=== PATIENT | male | born 1975 | race Caucasian/White ===

== ENCOUNTER 2016-08-12 09:54 | Day surgery (SDC) | payer BC ==
[2016-08-10 16:00] VITALS: BMI 28.1
[~2016-08-12 09:54] MED LIST: ACETAMINOPHEN TAB 500 MG TAB PO ONE; DEXAMETHASONE SOD PHOSPHATE 4 MG/ML 1 ML VIAL IV ONE; FAMOTIDINE 20 MG/2 ML VIAL IV ONE; LIDOCAINE 1% 20 ML VIAL (10MG/ML) FOR IV START INTRADERMA PRN; MIDAZOLAM 2 MG/2 ML VIAL IV PRN; ONDANSETRON 4 MG/2 ML VIAL IVP ONE; Pre Op ABX Message 1 EACH MISC MISCELLANE ONE; SCOPOLAMINE 1.5MG/72HR PATCH TRANSDERM ONE
[2016-08-12] MEDS: OXYMETAZOLINE 0.05% NASL SPRAY 15 ML NASAL SCH ×4 (11:04→11:32)
[2016-08-12] MEDS: LACTATED RINGERS 1,000 ML IV SCH ×3 (11:21→18:00)
[2016-08-12] MEDS ORDERED: ePHEDrine 50 MG/ML 1 ML AMP ONE (12:04)
[2016-08-12] MEDS ORDERED: DEXAMETHASONE SOD PHOS (MDV) 100 MG/10 ML VIAL ONE (12:04)
[2016-08-12] MEDS ORDERED: ONDANSETRON 4 MG/2 ML VIAL ONE (12:04)
[2016-08-12] MEDS ORDERED: SUCCINYLCHOLINE CHLORIDE 100 MG/5 ML SYR IV ONE (12:04)
[2016-08-12] MEDS ORDERED: MIDAZOLAM 2 MG/2 ML VIAL ONE (12:04)
[2016-08-12] MEDS ORDERED: PROPOFOL 10 MG/ML 20 ML VIAL IV ONE (12:04)
[2016-08-12] MEDS ORDERED: LIDOCAINE 1% INJ 10MG/ML (20 ML MDV) ONE (12:04)
[2016-08-12] MEDS ORDERED: fentaNYL (PF) 50 MCG/ML 2 ML AMP ONE (12:04)
[2016-08-12] MEDS ORDERED: LIDOCAINE 1%-EPI 1:100,000 20 ML VIAL SQ ONE (13:00)
[2016-08-12] MEDS ORDERED: LACTATED RINGERS 1,000 ML IV ONE (14:50)
[2016-08-12 15:20] VITALS: TEMP 98.3
[2016-08-12] MEDS: HYDROmorphone 1 MG/ML 1 ML SYRINGE IVP PRN ×2 (15:30→15:38)
--- NOTE | 2016-08-12 15:42 | P.OP ---
Date of Procedure: 08/12/16 Preoperative Diagnosis: Status post a partial right nasectomy for cancer, absence of right side of nose Postoperative Diagnosis: Same Procedure(s) Performed: Nasal reconstruction with use of a paramedian forehead flap with upper lateral cartilaginous graft with complex closure of the donor site. Anesthesia: GETA Surgeon: Kodak Barr Estimated Blood Loss (ml): 50 Pathology: other (Nasal margin) Condition: stable Disposition: PACU Indications for Procedure: This patient had a infiltrative basal cell carcinoma. Initial removal showed perineural invasion. Was sent to a Mohs surgeon for completion of removal. Reconstruction is planned. All risks, benefits, and alternative therapies were discussed in detail. Consent was obtained and all questions were answered. Operative Findings: Patient had a very large right nasal defect including the right side of the nose columella and alar rim. Description of Procedure: This patient was taken to the operative room and placed in the supine position. A general inhalation anesthetic was administered to the patient by mask and subsequently intubated with a cuffed endotracheal tube by the department of anesthesia with a functioning IV line in place. Patient was monitored throughout the entire case by the department of anesthesia. The face and nose was sterilely prepped and draped in usual fashion. We identified a very large right nasal defect where the entire right side of the nose was missing. We've injected the nose with lidocaine 1% with epinephrine 1 100,000 did markings. We with the use of a dermoid blade freshen the margins to accept the graft. We then did measurements and developed a template for nasal reconstruction. The nasal reconstruction was planned with a paramedian forehead flap. We utilized a Doppler to identify the supratrochlear artery. We marked this area. We harvested cartilage from the septum and use that as an upper lateral cartilage insert. We elected to hold off on a rim caudal edge of this graft until after this is healed. We then measured the forehead and scalp flap and used to template which extended into the scalp. We developed the paramedian flap with use of a 15 blade delicate plastic scissors and a Brown-Adsjames forceps and we rotated the paramedian flap into position and measured this appropriately. We had good blood flow and utilized a Doppler to make sure the pedicle flap was viable. We did extensive undermining of the donor site and we close the donor site in a complex fashion utilizing 2-0 Vicryl deeply 4-0 Monocryl in the deep dermal layer and the skin was closed with use of a 5-0 nylon. After closure of this donor site in a complex fashion we rotated the pedicle flap into position we thinned out the lower portion and rotated the lower portion upon itself to form the LR rim. We sutured the flap into position utilizing 4-0 Monocryl deeply. We then closed the skin with a 4-0 nylon in an interrupted type fashion. Excellent approximation was obtained we obtained an excellent cosmetic result with regard LR rim reconstruction. We utilized the cartilage that we previously harvested for the upper lateral cartilage for form and function. The patient tolerated this well and follow-up will be in the office in 1 week.
[2016-08-12] MEDS ORDERED: HYDROmorphone 1 MG/ML 1 ML SYRINGE IVP ONE (15:56)
[2016-08-12] MEDS ORDERED: HYDROcodone/APAP 5-325MG 1 EACH TAB PO ONE ×2 (16:34→16:36)
[2016-08-12 19:13] VITALS: BP 121/74; PULSE 99; RESP 18
== END 2016-08-12 18:18 | disposition home or self-care (01) ==
LOC: OR 09:54
PROVIDERS: ATTEND Otolaryngology
DX: Z42.8 Encounter for other plastic and reconstructive surgery following medical procedure or healed injury (principal); Z90.09 Acquired absence of other part of head and neck; C44.311 Basal cell carcinoma of skin of nose; I10 Essential (primary) hypertension; Z79.891 Long term (current) use of opiate analgesic; Z79.899 Other long term (current) drug therapy
CPT/HCPCS: 30400; 20912; 15731; 88305; C1762; J2250; J2405; J2001; J3010; J1170; J1100; J0330; J2704

== ENCOUNTER 2016-11-18 10:17 | Day surgery (SDC) | payer BC ==
[2016-11-17 14:18] VITALS: BMI 30.7
[~2016-11-18 10:17] MED LIST changes: +DEXAMETHASONE SOD PHOSPHATE 10 MG/ML 1 ML VIAL IV ONE; +LACTATED RINGERS 1,000 ML IV SCH; -LIDOCAINE 1% 20 ML VIAL (10MG/ML) FOR IV START INTRADERMA PRN; -MIDAZOLAM 2 MG/2 ML VIAL IV PRN; -Pre Op ABX Message 1 EACH MISC MISCELLANE ONE; +ceFAZolin 2 GM in SODIUM CHLORIDE 0.9% 100 ML IVPB ONE
[2016-11-18] MEDS ORDERED: LIDOCAINE 1% 20 ML VIAL (10MG/ML) FOR IV START INTRADERMA ONE (10:52)
[2016-11-18] MEDS ORDERED: ePHEDrine 50 MG/ML 1 ML AMP ONE (11:57)
[2016-11-18] MEDS ORDERED: LIDOCAINE 1% INJ 10MG/ML (20 ML MDV) ONE (11:57)
[2016-11-18] MEDS ORDERED: MIDAZOLAM 2 MG/2 ML VIAL ONE (11:57)
[2016-11-18] MEDS ORDERED: PROPOFOL 10 MG/ML 20 ML VIAL IV ONE (11:57)
[2016-11-18] MEDS ORDERED: fentaNYL (PF) 50 MCG/ML 2 ML AMP ONE (11:57)
[2016-11-18] MEDS ORDERED: SUCCINYLCHOLINE CHLORIDE 100 MG/5 ML SYR IV ONE (11:57)
[2016-11-18] MEDS ORDERED: LIDOCAINE 1%-EPI 1:100,000 20 ML VIAL SQ ONE ×2 (12:30)
[2016-11-18] MEDS ORDERED: BUPIVACAIN-EPI 0.5%-1:200,000 30 ML VIAL SQ ONE ×2 (12:30)
[2016-11-18] MEDS ORDERED: NITROGLYCERIN OINT 1 INCH/GM PACKET TOPICAL ONE (13:37)
[2016-11-18] MEDS ORDERED: BACITRACIN 500 UNIT/GM OINT 28.4 GM TUBE TOPICAL ONE (13:42)
[2016-11-18] MEDS ORDERED: LACTATED RINGERS 1,000 ML IV ONE (13:59)
[2016-11-18 14:15] VITALS: TEMP 97
[2016-11-18] MEDS: HYDROmorphone 1 MG/ML 1 ML SYRINGE IVP PRN ×2 (14:17→14:24)
--- NOTE | 2016-11-18 14:20 | P.OP ---
Date of Procedure: 11/18/16 Preoperative Diagnosis: Forehead and nose pedicle flap for nasal reconstruction after cancer removal. Postoperative Diagnosis: Same Procedure(s) Performed: Excision of a forehead topedicle flap with a complex closure of a 2.6 x 2 cm forehead defect to complex closure of a nasal defect measuring 2.7 x 1 cm with a debulking of the right alar rim with a right auricular cartilage graft and a complex closure of a right auricular donor site measuring 2.6 x 1 cm Implants: Anesthesia: CLAYA Surgeon: Kodak Barr Estimated Blood Loss (ml): 10 Pathology: none sent Condition: stable Disposition: PACU Indications for Procedure: Patient is a very large right nasal cancer and underwent reconstruction with use of a forehead flap. He seen today for pedicle takedown. We are also planning on a right auricular cartilage graft to reconstruct the right alar rim along with a debulking. Operative Findings: Patient had a existing pedicle flap that was taken down and the right nasal alar rim incision underwent reconstruction. Description of Procedure: This patient was taken to the operative room and placed in the supine position. A general inhalation anesthetic was administered to the patient by mask and subsequently intubated with a cuffed endotracheal tube by the department of anesthesia with a functioning IV line in place. The patient was monitored throughout the entire case by the department of anesthesia. The face and right ear and neck were sterilely prepped and draped in usual fashion. We marked the pedicle flap both on the forehead and around the nose along with a rim incision to the right christopher bowl. We anesthetize these areas with lidocaine 1% with epinephrine 1 100,000 and Marcaine. After 10 minutes were allowed wait for full vasoconstrictive effects to take place an incision was made in the forehead and the pedicle flap was from the forehead leaving a large defect. We excised this defect and close this after extensive undermining in all directions we did undermining in all directions widely removed redundant skin and close this in a complex fashion the incision measured 2.6 x 2 cm. We closed this with the 4-0 Monocryl in the deep subcutaneous tissue 4-0 Monocryl in the deep dermal layer 4-0 Monocryl and the mid dermal layer and the skin was closed with a 5-0 Prolene. The pedicle flap was then excised from the nose leaving a large defect measuring 2.7 x 1 cm. This defect underwent a debulking with removal of redundant skin we did extensive undermining in all directions and we repaired this defect with complex closure utilizing a 4-0 Monocryl in the deep subcutaneous fashion for Monocryl and the mid subcutaneous fashion and the skin was closed with a 5-0 Prolene. After the nasal defect was excised we made an incision along the right alar rim and debulked the right alar rim. We then made an incision in the auricular christopher bowl and harvested the skin from the christopher bowl. We closed the donor site in a complex fashion with extensive undermining and we utilized a 4-0 Monocryl the deep subcutaneous tissue 4-0 Monocryl in the deep dermal layer and the skin was closed with a 50 rapid Vicryl in a running nonlocking fashion that incision and defect site measured 2.6 x 1 cm. After the donor site was closed in a complex fashion the cartilage was cut to size and placed as a alar rim graft. We sutured it into place. Again we did a debulking of the right alar rim which was quite bulky. We then that rim and we close that defect in a complex fashion again with a 4-0 Monocryl deeply and a 5-0 Prolene after we did undermining and a graft placement and we secured the graft with a 4-0 Monocryl. Excellent approximation was obtained excellent results were obtained the nasal defects looked good. To summarize we did an excision of a forehead and nose pedicle flap with complex closure with a defect measuring 2.6 x 2 cm of the forehead we then did a complex closure of a nasal defect measuring 2.1 x 1 cm with a debulking of the right alar rim is a right auricular cartilage graft and complex closure of the right auricular donor site measuring 2.6 x 1 cm. The patient tolerated this well. Patient will be discharged with nitroglycerin ointment [place] antibiotics and a follow-up is scheduled for 1 week. The patient did have a Merocel sponge pack placed and he will remove that in 1 day.
[2016-11-18 14:35] VITALS: RESP 16
[2016-11-18] MEDS ORDERED: HYDROcodone/APAP 5-325MG 1 EACH TAB PO ONE (15:14)
[2016-11-18 15:37] VITALS: BP 129/71; PULSE 92
== END 2016-11-18 15:51 | disposition home or self-care (01) ==
LOC: OR 10:17
PROVIDERS: ATTEND Otolaryngology
DX: Z42.8 Encounter for other plastic and reconstructive surgery following medical procedure or healed injury (principal); C44.311 Basal cell carcinoma of skin of nose; I10 Essential (primary) hypertension; Z79.891 Long term (current) use of opiate analgesic; Z79.899 Other long term (current) drug therapy; Z72.0 Tobacco use
CPT/HCPCS: 30400; 21235; 13132; J2250; J1100; J0690; J2405; J2001; J3010; J1170; J0330; J2704

== ENCOUNTER 2017-12-20 11:26 | Inpatient (IN) | payer BC, OTHER ==
[2017-12-20] MEDS ORDERED: HYDROmorphone 1 MG/ML 1 ML SYRINGE IVP STA (13:25)
[2017-12-20] MEDS ORDERED: SODIUM CHLORIDE 0.9% 1,000 ML IV ONE (13:27)
[2017-12-20] MEDS ORDERED: ACETAMINOPHEN TAB 500 MG TAB PO STA (13:34)
[2017-12-20] MEDS ORDERED: hydrALAZINE HCL 20 MG/ML 1 ML VIAL IVP STA (13:34)
[2017-12-20] MEDS ORDERED: HYDROmorphone 0.5 MG/0.5 ML SYRINGE IVP STA (13:36)
--- NOTE | 2017-12-20 13:37 | ED ---
General Adult HPI - General Chief complaint: Abdominal Pain Stated complaint: LUQ Pain Time Seen by Provider: 12/20/17 11:30 Source: patient, RN notes reviewed Mode of arrival: ambulatory Limitations: no limitations - History of Present Illness Initial comments: This is a 42-year-old male who presents emergency Department complaining of left lower quadrant pain for last 2 or 3 days. Patient states he has vomited and was nauseous earlier but is no longer nauseated. Patient denies any diarrhea. Patient states the pain is limited to the left lower quadrant. Patient denies any other areas of abdominal pain. Patient denies any chest pain or difficulty breathing. Patient denies any headache patient denies numbness weakness. Patient denies any recent fever chills. Patient denies any back pain. Patient denies dysuria hematuria urinary frequency. - Related Data Home Medications Medication Instructions Recorded Confirmed No Known Home Medications 12/20/17 12/20/17 Allergies Allergy/AdvReac Type Severity Reaction Status Date / Time No Known Allergies Allergy Verified 12/20/17 12:50 Review of Systems ROS Statement: Those systems with pertinent positive or pertinent negative responses have been documented in the HPI. ROS Other: All systems not noted in ROS Statement are negative. Past Medical History Past Medical History: Cancer, GERD/Reflux, Hypertension Additional Past Medical History / Comment(s): skin cancer on nose , diverticulitis, History of Any Multi-Drug Resistant Organisms: None Reported Past Surgical History: Cholecystectomy, Orthopedic Surgery Additional Past Surgical History / Comment(s): LEFT WRIST surgery, "surgery to remove cyst from my stomach", nasal surgery Past Anesthesia/Blood Transfusion Reactions: No Reported Reaction Past Psychological History: Anxiety Smoking Status: Current every day smoker Past Alcohol Use History: None Reported Past Drug Use History: None Reported - Past Family History Mother Family Medical History: No Reported History General Exam - General Exam Comments Initial Comments: GENERAL: Patient is well-developed and well-nourished. Patient is nontoxic and well- hydrated and is in mild distress. ENT: Neck is soft and supple. No significant lymphadenopathy is noted. Oropharynx is clear. Moist mucous membranes. Neck has full range of motion without eliciting any pain. EYES: The sclera were anicteric and conjunctiva were pink and moist. Extraocular movements were intact and pupils were equal round and reactive to light. Eyelids were unremarkable. PULMONARY: Unlabored respirations. Good breath sounds bilaterally. No audible rales rhonchi or wheezing was noted. CARDIOVASCULAR: There is a regular rate and rhythm without any murmurs gallops or rubs. ABDOMEN: Left lower quadrant pain point tenderness no rebound. No palpable organomegaly was noted. There is no palpable pulsatile mass. SKIN: Skin is clear with no lesions or rashes and otherwise unremarkable. NEUROLOGIC: Patient is alert and oriented x3. Cranial nerves II through XII are grossly intact. Motor and sensory are also intact. Normal speech, volume and content. Symmetrical smile. MUSCULOSKELETAL: Normal extremities with adequate strength and full range of motion. No lower extremity swelling or edema. No calf tenderness. LYMPHATICS: No significant lymphadenopathy is noted PSYCHIATRIC: Normal psychiatric evaluation. Normal interpersonal interactions appears functionally intact in deals appropriately with others. No signs of depression. No signs of anxiety. Limitations: no limitations Course Vital Signs 12/20/17 12:15 Temperature 100.3 F H Pulse Rate 127 H Respiratory 16 Rate Blood Pressure 200/118 O2 Sat by Pulse 97 Oximetry Medical Decision Making - Medical Decision Making Computed tomography scan shows acute diverticulitis with some surrounding free fluid no free air no abscess. I spoke with Dr. Pierre he accepted the patient admitted the patient wrote admitting orders I started antibiotics and continue antibiotics on the floor. - Lab Data Result diagrams: 12/20/17 13:50 12/20/17 13:50 Lab Results 12/20/17 12/20/17 12/20/17 Range/Units 13:50 13:50 13:50 WBC 14.8 H (3.8-10.6) k/uL RBC 4.51 (4.30-5.90) m/uL Hgb 14.9 (13.0-17.5) gm/dL Hct 43.2 (39.0-53.0) % MCV 95.6 (80.0-100.0) fL MCH 33.0 (25.0-35.0) pg MCHC 34.5 (31.0-37.0) g/dL RDW 12.5 (11.5-15.5) % Plt Count 242 (150-450) k/uL Neutrophils % 81 % Lymphocytes % 11 % Monocytes % 6 % Eosinophils % 0 % Basophils % 1 % Neutrophils # 11.9 H (1.3-7.7) k/uL Lymphocytes # 1.6 (1.0-4.8) k/uL Monocytes # 0.9 (0-1.0) k/uL Eosinophils # 0.1 (0-0.7) k/uL Basophils # 0.1 (0-0.2) k/uL Sodium 141 (137-145) mmol/L Potassium 3.5 (3.5-5.1) mmol/L Chloride 102 (98-107) mmol/L Carbon Dioxide 24 (22-30) mmol/L Anion Gap 15 mmol/L BUN 7 L (9-20) mg/dL Creatinine 0.80 (0.66-1.25) mg/dL Est GFR (CKD-EPI)AfAm >90 (>60 ml/min/1.73 sqM) Est GFR (CKD-EPI)NonAf >90 (>60 ml/min/1.73 sqM) Glucose 109 H (74-99) mg/dL Plasma Lactic Acid Duong 1.4 (0.7-2.0) mmol/L Calcium 9.5 (8.4-10.2) mg/dL Total Bilirubin 1.1 (0.2-1.3) mg/dL GGT 314 H (15-73) U/L AST 60 H (17-59) U/L ALT 65 (21-72) U/L Alkaline Phosphatase 114 (38-126) U/L Total Protein 7.4 (6.3-8.2) g/dL Albumin 4.4 (3.5-5.0) g/dL Amylase 60 (30-110) U/L Lipase 91 (23-300) U/L Disposition Clinical Impression: Diverticulitis Disposition: ADMITTED IP TO THIS [facility] Referrals: None,Stated [Primary Care Provider] - 1-2 days Time of Disposition: 15:29
[2017-12-20 14:23] LABS: Basophils # (A) 0.1 k/uL (0-0.2); Basophils % (A) 1 %; Eosinophils # (A) 0.1 k/uL (0-0.7); Eosinophils % (A) 0 %; HCT 43.2 % (39.0-53.0); HGB 14.9 gm/dL (13.0-17.5); Lymphocytes # (A) 1.6 k/uL (1.0-4.8); Lymphocytes % (A) 11 %; MCHC 34.5 g/dL (31.0-37.0); MCV 95.6 fL (80.0-100.0); Mean Platelet Volume 6.7; Monocytes # (A) 0.9 k/uL (0-1.0); Monocytes % (A) 6 %; Neutrophils # (A) 11.9 k/uL (1.3-7.7); Neutrophils % (A) 81 %; Platelet Count 242 k/uL (150-450); RBC 4.51 m/uL (4.30-5.90); RDW 12.5 % (11.5-15.5); WBC 14.8 k/uL (3.8-10.6)
[2017-12-20 14:32] LABS: ALT 65 U/L (21-72); AST 60 U/L (17-59); Albumin 4.4 g/dL (3.5-5.0); Alkaline Phosphatase 114 U/L (38-126); Amylase 60 U/L (30-110); Anion Gap 15 mmol/L; Blood Urea Nitrogen 7 mg/dL (9-20); Calcium 9.5 mg/dL (8.4-10.2); Carbon Dioxide 24 mmol/L (22-30); Chloride 102 mmol/L (98-107); GGT 314 U/L (15-73); Glucose 109 mg/dL (74-99); Lipase 91 U/L (23-300); Potassium 3.5 mmol/L (3.5-5.1); Sodium 141 mmol/L (137-145); Total Bilirubin 1.1 mg/dL (0.2-1.3); Total Protein 7.4 g/dL (6.3-8.2)
--- NOTE | 2017-12-20 15:11 | CT ---
EXAMINATION TYPE: CT abdomen pelvis w con DATE OF EXAM: 12/20/2017 COMPARISON: NONE HISTORY: LLQ pain, diarrhea, vomiting CT DLP: 1283 mGycm Automated exposure control for dose reduction was used. CONTRAST: CT scan of the abdomen pelvis is performed with IV Contrast, patient injected with 100 mL of Isovue 3 00. FINDINGS- LUNG BASES- No significant abnormality is appreciated. LIVER/GB-surgical clips in the gallbladder fossa noted. Liver appears to be prominent in size measuri ng 22 cm there is findings suggestive of hepatic steatosis. Mild central biliary prominence of the du ct. Postcholecystectomy changes seen. PANCREAS- No gross abnormality is seen. SPLEEN- No gross abnormality is seen. ADRENALS- No gross abnormality is seen. KIDNEYS/BLADDER- no hydronephrosis nephrolithiasis or renal mass. BOWEL-there is diffuse bowel wall thickening involving the left colon with diverticula in the region is small amount of free fluid. No diagnostic evidence of free air. LYMPH NODES- No greater than 1cm abdominal or pelvic lymph nodes areappreciated. OSSEOUS STRUCTURES- No significant abnormality is seen. OTHER- aorta of normal caliber. IMPRESSION- 1. Acute diverticulitis with a small amount of adjacent free fluid but no evidence of free air or abs cess.
[2017-12-20] MEDS ORDERED: metroNIDAZOLE-NS PMX 500 MG in SALINE 1 100ML.BAG IVPB STA (15:49)
[2017-12-20] MEDS ORDERED: LEVOFLOXACIN 750MG-D5W PMX 750 MG in DEXTROSE/WATER 1 150ML.BAG IVPB STA (15:49)
[2017-12-20] MEDS ORDERED: diphenhydrAMINE 50 MG/ML 1 ML VIAL IVP STA (16:12)
[2017-12-20] MEDS: HYDROcodone/APAP 5-325MG 1 EACH TAB PO PRN ×2 (18:07→22:11)
[2017-12-20] MEDS: PIPERACILLIN-TAZOBACTAM 3.375 GM in DEXTROSE/WATER 1 50ML.BAG IVPB STA ×2 (19:40→19:57)
[2017-12-20] MEDS ORDERED: SODIUM CHLORIDE 0.9% 1,000 ML IV SCH (20:00)
[2017-12-20 22:09] VITALS: TEMP 99.7
[2017-12-20] MEDS: MORPHINE SULFATE 2 MG/ML SYRINGE IVP PRN (23:02)
[2017-12-20] MEDS: metroNIDAZOLE-NS PMX 500 MG in SALINE 1 100ML.BAG IVPB SCH (23:06)
[2017-12-20] MEDS: HEPARIN SODIUM,PORCINE 5,000 UNIT/ML 1 ML VIAL SQ SCH (23:06)
--- NOTE | 2017-12-20 23:09 | P.HPIM ---
History of Present Illness H&P Date: 12/20/17 Chief Complaint: Abdominal pain Patient is a 42-year-old male with a known history of hypertension, GERD, osteoarthritis and previous history of diagnostic laparoscopic drainage of abscess due to perforated diverticula came to ER with complaints of left lower quadrant pain for last 2 or 3 days. Patient states he has vomited and was nauseous earlier but is no longer nauseated. Last night he also felt cold sweats. Patient denies any diarrhea. Patient states the pain is limited to the left lower quadrant. Patient denies any other areas of abdominal pain. Patient denies any chest pain or difficulty breathing. Patient denies any headache patient denies numbness weakness. Patient denies any recent fever chills. Patient denies any back pain. Patient denies dysuria hematuria urinary frequency. CT chest showed acute diverticulitis with small amount of adjacent free fluid but no evidence of free air or abscess. Review of Systems Constitutional: Patient denies any fever or chills . No generalized weakness or weight loss. Abdomen: Patient does have left lower quadrant abdominal pain along with nausea and 1 episode of vomiting. No diarrhea. Cardiovascular: Patient denies any chest pain or short of breath no palpitations. Respiratory: patient denied any cough is from production. No shortness of breath Neurologic: Patient denied any numbness or tingling headache. Musculoskeletal: Patient denies any complaints of joint swelling or deformity. Skin: Negative Psychiatric: Negative Endocrine: No heat or cold intolerance. No recent weight gain. Genitourinary: No dysuria or hematuria. All other 14 point ROS negative except the above 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 w/ skin flap, 10-05-15 diagnostic laproscopic and drainage of abcess d/t perforated diverticula Past Anesthesia/Blood Transfusion Reactions: No Reported Reaction Additional Past Anesthesia/Blood Transfusion Reaction / Comment(s): has never recieved blood Smoking Status: Current every day smoker - Past Family History Mother Family Medical History: No Reported History Additional Family Medical History / Comment(s): pt was raised by his grandmother does'nt know anything about his mom or dad Medications and Allergies Home Medications Medication Instructions Recorded Confirmed Type No Known Home Medications 12/20/17 12/20/17 History Allergies Allergy/AdvReac Type Severity Reaction Status Date / Time levofloxacin [From Levaquin] Allergy Rash/Hives Verified 12/20/17 21:43 Physical Exam Vitals: Vital Signs Temp Pulse Resp BP Pulse Ox 12/20/17 12:15 100.3 F H 127 H 16 200/118 97 Intake and Output 12/20/17 12/20/17 12/20/17 06:59 14:59 22:59 Other: Weight 79.379 kg PHYSICAL EXAMINATION: Patient is lying in the bed comfortably, no acute distress, awake alert and oriented.. HEENT: Normocephalic. Neck is supple. Pupils reactive. Nostrils clear. Oral cavity is moist. Ears reveal no drainage. Neck reveals no JVD, carotid bruits, or thyromegaly. CHEST EXAMINATION: Trachea is central. Symmetrical expansion. Lung bonilla clear to auscultation and percussion. CARDIAC: Normal S1, S2 with no gallops. No murmurs ABDOMEN: Soft. Left lower quadrant tenderness. No guarding or rigidity. Bowel sounds normal. No organomegaly. No abdominal bruits. Extremities: reveal no edema. No clubbing or cyanosis Neurologically awake, alert, oriented x3 with well-coordinated movements. No focal deficits noted Skin: No rash or skin lesions. Psychiatric: Coperative. Nonsuicidal Musculoskeletal: No joint swelling or deformity. Normal range of motion. Results CBC & Chem 7: 12/20/17 13:50 12/20/17 13:50 Labs: Abnormal Lab Results - Last 24 Hours (Table) 12/20/17 12/20/17 Range/Units 13:50 13:50 WBC 14.8 H (3.8-10.6) k/uL Neutrophils # 11.9 H (1.3-7.7) k/uL BUN 7 L (9-20) mg/dL Glucose 109 H (74-99) mg/dL GGT 314 H (15-73) U/L AST 60 H (17-59) U/L Thrombosis Risk Factor Assmnt - DVT/VTE Prophylaxis DVT/VTE Prophylaxis: Pharmacologic Prophylaxis ordered Assessment and Plan Assessment: Left lower quadrant abdominal pain secondary to Acute diverticulitis History of laparoscopic drainage of perforated diverticula Hypertension GERD Osteoarthritis Basilar cell cancer on nose status post surgery with skin flap DVT prophylaxis Plan: Patient will be continued on antibiotics in the form of Zosyn and metronidazole. Continue the pain medications in the form of Atlas and Dilaudid when necessary. Patient will be started on clear liquid diet and advance as tolerated. We will follow up closely and further recommendations based on the clinical course. Time with Patient: Greater than 30
[2017-12-21] MEDS ORDERED: PIPERACILLIN-TAZOBACTAM 3.375 GM in DEXTROSE/WATER 1 50ML.BAG IVPB SCH
[2017-12-21] MEDS: amLODIPine 5 MG TAB PO SCH ×2 (00:49→07:35)
[2017-12-21] MEDS: PIPERACILLIN-TAZOBACTAM 3.375 GM in DEXTROSE/WATER 1 50ML.BAG IVPB SCH ×2 (04:15→12:41)
[2017-12-21] MEDS: metroNIDAZOLE-NS PMX 500 MG in SALINE 1 100ML.BAG IVPB SCH ×2 (05:46→12:41)
[2017-12-21] MEDS: MORPHINE SULFATE 2 MG/ML SYRINGE IVP PRN (05:48)
[2017-12-21] MEDS: HYDROcodone/APAP 5-325MG 1 EACH TAB PO PRN (06:39)
[2017-12-21 07:05] LABS: ALT 49 U/L (21-72); AST 40 U/L (17-59); Albumin 3.7 g/dL (3.5-5.0); Alkaline Phosphatase 95 U/L (38-126); Anion Gap 11 mmol/L; Blood Urea Nitrogen 9 mg/dL (9-20); Calcium 8.7 mg/dL (8.4-10.2); Carbon Dioxide 25 mmol/L (22-30); Chloride 104 mmol/L (98-107); Glucose 104 mg/dL (74-99); Potassium 3.2 mmol/L (3.5-5.1); Sodium 140 mmol/L (137-145); Total Bilirubin 1.4 mg/dL (0.2-1.3); Total Protein 6.3 g/dL (6.3-8.2)
[2017-12-21 07:08] LABS: Basophils # (A) 0.1 k/uL (0-0.2); Basophils % (A) 1 %; Eosinophils # (A) 0.1 k/uL (0-0.7); Eosinophils % (A) 2 %; HCT 39.5 % (39.0-53.0); HGB 13.6 gm/dL (13.0-17.5); Lymphocytes # (A) 1.4 k/uL (1.0-4.8); Lymphocytes % (A) 17 %; MCHC 34.5 g/dL (31.0-37.0); MCV 98.6 fL (80.0-100.0); Mean Platelet Volume 6.7; Monocytes # (A) 0.4 k/uL (0-1.0); Monocytes % (A) 5 %; Neutrophils # (A) 5.9 k/uL (1.3-7.7); Neutrophils % (A) 74 %; Platelet Count 211 k/uL (150-450); RDW 12.3 % (11.5-15.5)
[2017-12-21] MEDS: HEPARIN SODIUM,PORCINE 5,000 UNIT/ML 1 ML VIAL SQ SCH (07:35)
[2017-12-21 08:15] VITALS: BP 161/90; PULSE 81; RESP 18
[2017-12-21 10:51] LABS: Appearance,Urine Clear (Clear); Bilirubin,Urine Negative (Negative); Blood,Urine Negative (Negative); Color,Urine Yellow; Glucose,Urine (UA) Negative (Negative); Ketones,Urine 1+ (Negative); Leukocyte Esterase,Urine Negative (Negative); Nitrite,Urine Negative (Negative); Protein,Urine Trace (Negative); Specific Gravity,Urine 1.023 (1.001-1.035)
== END 2017-12-21 12:35 | disposition left against medical advice (07) | DRG 872 ==
LOC: EC 11:26 → 5MS5E 15:29
PROVIDERS: ADMIT Internal Medicine; ATTEND Internal Medicine
DX: A41.9 Sepsis, unspecified organism (principal); K57.32 Diverticulitis of large intestine without perforation or abscess without bleeding; I10 Essential (primary) hypertension; K21.9 Gastro-esophageal reflux disease without esophagitis; F41.9 Anxiety disorder, unspecified; M19.90 Unspecified osteoarthritis, unspecified site; F17.200 Nicotine dependence, unspecified, uncomplicated; Z85.828 Personal history of other malignant neoplasm of skin; Z90.49 Acquired absence of other specified parts of digestive tract
CPT/HCPCS: 36415; 74177; 80053; 81003; 82150; 82977; 83605; 83690; 85025; 87040; 99285

== ENCOUNTER 2022-10-29 05:06 | Inpatient (IN) | payer OTHER ==
[2022-10-29 05:48] LABS: Basophils # (A) 0.1 k/uL (0-0.2); Basophils % (A) 1 %; Eosinophils # (A) 0.1 k/uL (0-0.7); Eosinophils % (A) 1 %; HCT 39.7 % (39.0-53.0); HGB 13.8 gm/dL (13.0-17.5); Lymphocytes # (A) 1.5 k/uL (1.0-4.8); Lymphocytes % (A) 22 %; MCH 34.6 pg (25.0-35.0); MCHC 34.7 g/dL (31.0-37.0); MCV 99.6 fL (80.0-100.0); Mean Platelet Volume 9.1; Monocytes # (A) 0.4 k/uL (0-1.0); Monocytes % (A) 6 %; Neutrophils # (A) 4.4 k/uL (1.3-7.7); Neutrophils % (A) 66 %; RBC 3.98 m/uL (4.30-5.90); RDW 13.7 % (11.5-15.5); WBC 6.6 k/uL (3.8-10.6)
[2022-10-29 06:00] LABS: ALT 112 U/L (4-49); AST 493 U/L (17-59); African American GFR (CKD) >90 (>60 ml/min/1.73 sqM); Albumin 3.2 g/dL (3.5-5.0); Alkaline Phosphatase 257 U/L (38-126); Amylase 97 U/L (30-110); Anion Gap 14 mmol/L; Blood Urea Nitrogen 5 mg/dL (9-20); Calcium 7.6 mg/dL (8.4-10.2); Carbon Dioxide 31 mmol/L (22-30); Chloride 89 mmol/L (98-107); Glucose 118 mg/dL (74-99); Lipase 713 U/L (23-300); Non-African American GFR(CKD) >90 (>60 ml/min/1.73 sqM); Sodium 134 mmol/L (137-145); Total Bilirubin 4.7 mg/dL (0.2-1.3); Total Protein 8.4 g/dL (6.3-8.2)
[2022-10-29] MEDS ORDERED: FAMOTIDINE 20 MG/2 ML VIAL IV STA (06:31)
[2022-10-29] MEDS ORDERED: ONDANSETRON 4 MG/2 ML VIAL IVP STA (06:31)
[2022-10-29] MEDS ORDERED: MORPHINE SULFATE 2 MG/ML SYRINGE IVP STA (06:31)
[2022-10-29 06:37] LABS: Alcohol 219 mg/dL
[2022-10-29] MEDS ORDERED: POTASSIUM CHLORIDE ER 20 MEQ TAB.ER PO STA (06:37)
[2022-10-29] MEDS ORDERED: POTASSIUM CHLORIDE 40 MEQ in WATER FOR INJECTION 1 100ML.BAG IVPB STA (06:37)
[2022-10-29] MEDS ORDERED: SODIUM CHLORIDE 0.9% 1,000 ML IV STA ×2 (06:38→08:31)
[2022-10-29] MEDS ORDERED: HYDROmorphone 0.5 MG/0.5 ML SYRINGE IVP STA ×2 (06:39→09:52)
[2022-10-29] MEDS ORDERED: ASPIRIN 325 MG TAB PO STA (06:42)
[2022-10-29 06:46] LABS: Platelet Count 95 k/uL (150-450); Poikilocytosis (M) Present
--- NOTE | 2022-10-29 06:48 | ED ---
General Adult HPI - General Chief complaint: Abdominal Pain Stated complaint: ETOH Time Seen by Provider: 10/29/22 05:40 Source: patient, RN notes reviewed Mode of arrival: wheelchair Limitations: no limitations - History of Present Illness Initial comments: 47-year-old male with a past medical history of hypertension, diverticulitis with perforation, GERD, chronic alcohol abuse, h/o cholecystectomy presents to the emergency room for abdominal pain. Patient states for the past 5 days he has had upper abdominal pain. He states he also has had nausea vomiting and hasn't been able to eat or drink much. He has been having a little bit of diarrhea. Last alcoholic drink sore this morning. Patient does admit the pain radiates to his chest. He denies any fevers or chills. He has a history of diverticulitis with perforation but this feels different. Patient has no other complaints at this time including shortness of breath, headache, or visual changes. - Related Data Home Medications Medication Instructions Recorded Confirmed No Known Home Medications 12/20/17 12/20/17 Allergies Allergy/AdvReac Type Severity Reaction Status Date / Time levofloxacin [From Levaquin] Allergy Rash/Hives Verified 10/29/22 08:17 Review of Systems ROS Statement: Those systems with pertinent positive or pertinent negative responses have been documented in the HPI. ROS Other: All systems not noted in ROS Statement are negative. 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 w/ skin flap, 10-05-15 diagnostic laproscopic and drainage of abcess d/t perforated diverticula Past Anesthesia/Blood Transfusion Reactions: No Reported Reaction Additional Past Anesthesia/Blood Transfusion Reaction / Comment(s): has never recieved blood Past Psychological History: Anxiety Smoking Status: Current every day smoker Past Alcohol Use History: Occasional Past Drug Use History: None Reported - Past Family History Mother Family Medical History: No Reported History Additional Family Medical History / Comment(s): pt was raised by his grandmother does'nt know anything about his mom or dad General Exam Limitations: no limitations General appearance: alert, in no apparent distress Head exam: Present: atraumatic Eye exam: Present: normal appearance, scleral icterus (slight) ENT exam: Present: mucous membranes dry Neck exam: Present: normal inspection, full ROM. Absent: tenderness Respiratory exam: Present: normal lung sounds bilaterally. Absent: respiratory distress, wheezes Cardiovascular Exam: Present: regular rate, normal rhythm, normal heart sounds GI/Abdominal exam: Present: distended, tenderness (epigastric and suprapubic tenderness), normal bowel sounds. Absent: guarding, rebound, rigid Neurological exam: Present: alert Course Vital Signs 10/29/22 10/29/22 05:12 07:54 Temperature 97.9 F Pulse Rate 107 H 98 Respiratory 18 18 Rate Blood Pressure 150/87 157/108 O2 Sat by Pulse 98 93 L Oximetry EKG Findings - EKG Comments: EKG Findings:: Sinus tachycardia, ventricular rate 107, UT interval 156, QTC 430, ST depression in lateral leads, II, aVF Medical Decision Making - Medical Decision Making Vitals are stable. Patient with mild distress secondary to pain. Physical exam does reveal abdominal tenderness and distention. CBC relatively unremarkable. CMP shows hypokalemia and hypomagnesemia which are replaced. EKG with diffuse ST depressions likely related to hypokalemia. Mildly elevated troponin at 0.073 which will be trended and cardiology will be consulted. Total bili is 4.7 with transaminitis and a lipase of 713. CT abdomen and pelvis with nonspecific findings including a possible cirrhosis, nonspecific enterocolitis, and there he pancreatic fluid. Patient alcohol is currently 219. This case with sound physicians. Patient will be admitted for further management. Was pt. sent in by a medical professional or institution (, PA, TUBE ROLLER, urgent care, hospital, or fci...) When possible be specific @ -No Did you speak to anyone other than the patient for history (EMS, parent, family, police, friend...)? What history was obtained from this source @ -no Did you review nursing and triage notes (agree or disagree)? Why? @ -[I reviewed and agree with nursing and triage notes] Were old charts reviewed (outside hosp., previous admission, EMS record, old EKG, old radiological studies, urgent care reports/EKG's, fci records)? Report findings @ -previous admissions reviewed Differential Diagnosis (chest pain, altered mental status, abdominal pain women, abdominal pain men, vaginal bleeding, weakness, fever, dyspnea, syncope, he adache, dizziness, GI bleed, back pain, seizure, CVA, palpatations, mental health)? @ -Differential Abdominal Pain Men: Appendicitis, cholecystitis, diverticulosis, ischemic bowel, pancreatitis, hepatitis, UTI, gastroenteritis, AAA, incarcerated hernia, bowel obstruction, constipation, inflammatory bowel, hepatitis, peptic ulcer disease, splenic infarction, perforated viscus, testicular torsion, this is not meant to be an all-inclusive list EKG interpreted by me (3pts min.). @ -[As above] X-rays interpreted by me (1pt min.). @ -CXR CT interpreted by me (1pt min.). @ -CT abdomen and pelvis U/S interpreted by me (1pt. min.). @ -[None done] What testing was considered but not performed or refused? (CT, X-rays, U/S, labs)? Why? @ -US, h/o cholecystectomy What meds were considered but not given or refused? Why? @ -Morphine, biliary dyskinesia Did you discuss the management of the patient with other professionals (professionals i.e. , PA, TUBE ROLLER, lab, RT, psych nurse, health social work professor, soda dispenser, teacher, state highway police officer, director case management)? Give summary @ -Dr Sevilla, physician Was smoking cessation discussed for >3mins.? @ -[No] Was critical care preformed (if so, how long)? @ -yes, 35 minutes Were there social determinants of health that impacted care today? How? (Homelessness, low income, unemployed, alcoholism, drug addiction, transportation, low edu. Level, literacy, decrease access to med. care, fci, rehab)? @ -yes, alcoholism Was there de-escalation of care discussed even if they declined (Discuss DNR or withdrawal of care, Hospice)? DNR status @ -[No] What co-morbidities impacted this encounter? (DM, HTN, Smoking, COPD, CAD, Cancer, CVA, ARF, Chemo, Hep., AIDS, mental health diagnosis, sleep apnea, morbid obesity)? @ -alcoholism Was patient admitted / discharged? Hospital course, mention meds given and route, prescriptions, significant lab abnormalities, going to OR and other per tinent info. @ -Vitals are stable. Patient with mild distress secondary to pain. Physical exam does reveal abdominal tenderness and distention. CBC relatively unrema rkable. CMP shows hypokalemia and hypomagnesemia which are replaced. EKG with diffuse ST depressions likely related to hypokalemia. Mildly elevated troponin at 0.073 which will be trended and cardiology will be consulted. Total bili is 4.7 with transaminitis and a lipase of 713. CT abdomen and pelvis with nonspecific findings including a possible cirrhosis, nonspecific enterocolitis, and there he pancreatic fluid. Patient alcohol is currently 219. This case with sound physicians. Patient will be admitted for further management. Undiagnosed new problem with uncertain prognosis? @ -yes Drug Therapy requiring intensive monitoring for toxicity (Heparin, Nitro, Insulin, Cardizem)? @ -[No] Were any procedures done? @ -[No] Diagnosis/symptom? @ - hypokalemia, hypomagnesemia, EKG ST depressions, elevated troponin, transaminitis, pancreatitis, enterocolitis, cirrhosis, alcohol intoxication Acute, or Chronic, or Acute on Chronic? @ -acute Uncomplicated (without systemic symptoms) or Complicated (systemic symptoms)? @ -complicated Side effects of treatment? @ -[No] Exacerbation, Progression, or Severe Exacerbation? @ -[No] Poses a threat to life or bodily function? How? (Chest pain, [place], [place], pneumonia, PE, COPD, DKA, ARF, appy, cholecystitis, CVA, Diverticulitis, Homicidal, Suicidal, threat to staff... and all critical care pts) @ -yes, pancratitis, hypokalemia - Lab Data Result diagrams: 10/29/22 05:38 10/29/22 05:38 Lab Results 10/29/22 10/29/22 10/29/22 Range/Units 05:38 05:38 05:38 WBC 6.6 (3.8-10.6) k/uL RBC 3.98 L (4.30-5.90) m/uL Hgb 13.8 (13.0-17.5) gm/dL Hct 39.7 (39.0-53.0) % MCV 99.6 (80.0-100.0) fL MCH 34.6 (25.0-35.0) pg MCHC 34.7 (31.0-37.0) g/dL RDW 13.7 (11.5-15.5) % Plt Count 95 L (150-450) k/uL MPV 9.1 Neutrophils % 66 % Lymphocytes % 22 % Monocytes % 6 % Eosinophils % 1 % Basophils % 1 % Neutrophils # 4.4 (1.3-7.7) k/uL Lymphocytes # 1.5 (1.0-4.8) k/uL Monocytes # 0.4 (0-1.0) k/uL Eosinophils # 0.1 (0-0.7) k/uL Basophils # 0.1 (0-0.2) k/uL Manual Slide Review Performed Poikilocytosis (manual Present PT (9.0-12.0) sec INR (<1.2) APTT (22.0-30.0) sec Sodium 134 L (137-145) mmol/L Potassium 2.0 L* (3.5-5.1) mmol/L Chloride 89 L (98-107) mmol/L Carbon Dioxide 31 H (22-30) mmol/L Anion Gap 14 mmol/L BUN 5 L (9-20) mg/dL Creatinine 0.73 (0.66-1.25) mg/dL Est GFR (CKD-EPI)AfAm >90 (>60 ml/min/1.73 sqM) Est GFR (CKD-EPI)NonAf >90 (>60 ml/min/1.73 sqM) Glucose 118 H (74-99) mg/dL Calcium 7.6 L (8.4-10.2) mg/dL Magnesium (1.6-2.3) mg/dL Total Bilirubin 4.7 H (0.2-1.3) mg/dL AST 493 H (17-59) U/L ALT 112 H (4-49) U/L Alkaline Phosphatase 257 H (38-126) U/L Troponin I 0.073 H* (0.000-0.034) ng/mL Total Protein 8.4 H (6.3-8.2) g/dL Albumin 3.2 L (3.5-5.0) g/dL Amylase 97 (30-110) U/L Lipase 713 H (23-300) U/L Urine Color Urine Appearance (Clear) Urine pH (5.0-8.0) Ur Specific [place] (1.001-1.035) Urine Protein (Negative) Urine Glucose (UA) (Negative) Urine Ketones (Negative) Urine Blood (Negative) Urine Nitrite (Negative) Urine Bilirubin (Negative) Urine Urobilinogen (<2.0) mg/dL Ur Leukocyte Esterase (Negative) Serum Alcohol 219 H* mg/dL 10/29/22 10/29/22 10/29/22 Range/Units 05:38 07:41 07:44 WBC (3.8-10.6) k/uL RBC (4.30-5.90) m/uL Hgb (13.0-17.5) gm/dL Hct (39.0-53.0) % MCV (80.0-100.0) fL MCH (25.0-35.0) pg MCHC (31.0-37.0) g/dL RDW (11.5-15.5) % Plt Count (150-450) k/uL MPV Neutrophils % % Lymphocytes % % Monocytes % % Eosinophils % % Basophils % % Neutrophils # (1.3-7.7) k/uL Lymphocytes # (1.0-4.8) k/uL Monocytes # (0-1.0) k/uL Eosinophils # (0-0.7) k/uL Basophils # (0-0.2) k/uL Manual Slide Review Poikilocytosis (manual PT 15.5 H (9.0-12.0) sec INR 1.5 H (<1.2) APTT 31.0 H (22.0-30.0) sec Sodium (137-145) mmol/L Potassium (3.5-5.1) mmol/L Chloride (98-107) mmol/L Carbon Dioxide (22-30) mmol/L Anion Gap mmol/L BUN (9-20) mg/dL Creatinine (0.66-1.25) mg/dL Est GFR (CKD-EPI)AfAm (>60 ml/min/1.73 sqM) Est GFR (CKD-EPI)NonAf (>60 ml/min/1.73 sqM) Glucose (74-99) mg/dL Calcium (8.4-10.2) mg/dL Magnesium 1.3 L (1.6-2.3) mg/dL Total Bilirubin (0.2-1.3) mg/dL AST (17-59) U/L ALT (4-49) U/L Alkaline Phosphatase (38-126) U/L Troponin I (0.000-0.034) ng/mL Total Protein (6.3-8.2) g/dL Albumin (3.5-5.0) g/dL Amylase (30-110) U/L Lipase (23-300) U/L Urine Color Yellow Urine Appearance Clear (Clear) Urine pH 6.5 (5.0-8.0) Ur Specific [place] 1.016 (1.001-1.035) Urine Protein Negative (Negative) Urine Glucose (UA) Negative (Negative) Urine Ketones Negative (Negative) Urine Blood Negative (Negative) Urine Nitrite Negative (Negative) Urine Bilirubin Negative (Negative) Urine Urobilinogen 3.0 (<2.0) mg/dL Ur Leukocyte Esterase Negative (Negative) Serum Alcohol mg/dL Disposition Clinical Impression: Pancreatitis, Transaminitis, Hypokalemia, Hypomagnesemia, Alcohol intoxication Disposition: ADMITTED IP TO THIS HOSP Is patient prescribed a controlled substance at d/c from ED?: No Referrals: None,Stated [Primary Care Provider] - 1-2 days Time of Disposition: 08:23
--- NOTE | 2022-10-29 06:55 | XR ---
EXAMINATION TYPE: XR chest 1V DATE OF EXAM: 10/29/2022 6:44 AM COMPARISON: None TECHNIQUE: XR chest 1V Frontal view of the chest. CLINICAL INDICATION:Male, 47 years old with history of etoh, epigastric pain; FINDINGS: Lungs/Pleura: There is no evidence of pleural effusion, focal consolidation, or pneumothorax. Elevat ion of the right hemidiaphragm. Pulmonary vascularity: Unremarkable. Heart/mediastinum: Cardiomediastinal silhouette is unremarkable. Musculoskeletal: No acute osseous pathology. IMPRESSION: 1. No acute cardiopulmonary disease/process. 2. Elevation of the right hemidiaphragm which can be seen with hemidiaphragmatic paresis. This can b e further evaluated with fluoroscopic sniff test as clinically indicated.
[2022-10-29] MEDS: MAGNESIUM SULFATE-D5W PMX 1 GM in DEXTROSE/WATER 1 100ML.BAG IVPB SCH ×2 (07:02→09:32)
[2022-10-29] MEDS: POTASSIUM CHLORIDE 20 MEQ in WATER FOR INJECTION 1 100ML.BAG IVPB SCH ×2 (07:04→09:33)
--- NOTE | 2022-10-29 07:40 | CT ---
EXAMINATION TYPE: CT abdomen pelvis w con CT DLP: 1147.1 mGycm, Automated exposure control for dose reduction was used. DATE OF EXAM: 10/29/2022 7:26 AM COMPARISON: CT abdomen pelvis most recent from 12/20/2009. CLINICAL INDICATION:Male, 47 years old with history of pain, lipase; Abdominal pain x1 week. TECHNIQUE: Standard CT of the abdomen and pelvis following the administration of 100 cc of Isovue 3 00 IV contrast material. Coronal and sagittal reformats were performed. FINDINGS: LOWER CHEST: The visualized lung bases are clear. Cardiomegaly. No pericardial effusion. Coronary art erial calcifications. ABDOMEN LIVER: Diffusely heterogenous liver with scattered suggestive hypodense micronodules. The portal vein is patent. The hepatic veins appear patent. Recanalization the umbilical vein. GALLBLADDER AND BILE DUCTS: The gallbladder is surgically absent. PANCREAS: Minimal peripancreatic fluid. SPLEEN: Unremarkable. ADRENAL GLANDS: Unremarkable. KIDNEYS AND URETERS: No evidence of hydronephrosis. Nonobstructive bilateral punctate 1 mm calculi. T he kidneys enhance symmetrically without suspicious focal lesion. PELVIS BLADDER: Moderately distended. REPRODUCTIVE: Unremarkable. ABDOMEN & PELVIS STOMACH AND BOWEL: Hyperdense material within the stomach and distal esophagus. Likely represents ing ested contents. Sigmoid colon diverticulosis with wall thickening without surrounding inflammatory ch anges. There is some wall thickening involving the descending colon extending into the hepatic flexur e and also the terminal ileum. The appendix is within normal limits. No evidence of bowel obstruction . PERITONEUM: No evidence of pneumoperitoneum and small volume ascites throughout the pelvis. VASCULATURE: Mild atherosclerotic calcifications are present throughout the abdominal aorta and its b ranches. No evidence of aortic aneurysm. MUSCULOSKELETAL: No acute osseous abnormalities LYMPH NODES: No gross evidence for lymphadenopathy. SOFT TISSUE/ABDOMINAL WALL: Unremarkable IMPRESSION: 1. Heterogenous appearance of the liver with suggestive scattered hypodense micronodules. Additional ly there is small volume ascites and recanalization of the umbilical vein. Differential includes hepa tic congestion versus Budd-Chiari syndrome versus underlying cirrhosis. Consider further evaluation w ith MRI liver and correlation with liver function tests. 2. Scattered regions of circumferential wall thickening involving the sigmoid colon, ascending colon with extension into the hepatic flexure and the terminal ileum. Additional sigmoid diverticulosis dem onstrated. Findings may related to nonspecific enterocolitis from an infectious or inflammatory etiol ogy such as Crohn's disease versus portal hypertensive enterocolonic with the. 3. Nonobstructed bilateral renal calculi. 4. Trace peripancreatic fat stranding and fluid which may reactive to # 1 versus acute interstitial e dematous pancreatitis. Correlation with lipase values is recommended.
[2022-10-29 07:54] LABS: Appearance,Urine Clear (Clear); Bilirubin,Urine Negative (Negative); Blood,Urine Negative (Negative); Color,Urine Yellow; Glucose,Urine (UA) Negative (Negative); Ketones,Urine Negative (Negative); Leukocyte Esterase,Urine Negative (Negative); Nitrite,Urine Negative (Negative); PH, Urine 6.5 (5.0-8.0); Protein,Urine Negative (Negative); Specific Gravity,Urine 1.016 (1.001-1.035)
[2022-10-29 07:56] LABS: INR 1.5 (<1.2); Prothrombin Time 15.5 sec (9.0-12.0)
[2022-10-29 08:24] LABS: Bilirubin, Conjugated 0.6 mg/dL (0.0-0.3); Bilirubin, Delta 1.8 mg/dL (0.0-0.2); Bilirubin,Unconjugated 2.1 mg/dL (0.0-1.1); Total Bilirubin 4.5 mg/dL (0.2-1.3)
[2022-10-29] MEDS ORDERED: THIAMINE 100 MG/ML 2 ML VIAL IM STA (08:29)
[2022-10-29] MEDS ORDERED: LORazepam 2 MG/ML INJ IV PRN ×3 (09:51)
[2022-10-29] MEDS ORDERED: METOPROLOL SUCCINATE (ER) 25 MG TAB.ER.24H PO STA (12:18)
[2022-10-29] MEDS: POTASSIUM CHLORIDE 10 MEQ in WATER FOR INJECTION 1 100ML.BAG IVPB SCH ×4 (14:49→19:57)
--- NOTE | 2022-10-29 14:49 | CONS ---
CONSULTATION CHIEF COMPLAINT: Abdominal pain. HISTORY OF PRESENT ILLNESS: This is a 47-year-old gentleman with no significant past medical history, has significant EtOH abuse, who presented to hospital with severe hypokalemia, elevated liver enzymes and mild elevation in troponin. He has coagulopathy with an INR of 1.5. He had ST-T wave changes on his EKG. He does not have any chest pain. We were consulted because of the elevated troponin. His alcohol level is elevated at 219. The patient denies any chest pain or difficulty in breathing. His abdominal pain is improving since being admitted. His lipase is elevated at 713. There is no prior history of coronary artery disease or congestive heart failure. I believe his clinical presentation is all related to EtOH intoxication and alcohol abuse. I advised the patient to quit drinking and I will obtain a 2D echo to assess his LV function and wall motion. When alcohol-related issues resolve, we might consider performing a stress test on him. PAST MEDICAL HISTORY: Negative for hypertension, diabetes, dyslipidemia. MEDICATIONS: None. ALLERGIES: Levaquin. FAMILY HISTORY: Negative for premature coronary artery disease. SOCIAL HISTORY: Significant for smoking and EtOH abuse. There is no history of drug abuse. REVIEW OF SYSTEMS: A review of systems has been performed. Pertinents are as documented. PHYSICAL EXAMINATION: GENERAL: On exam, comfortable at rest. VITAL SIGNS: Heart rate is 80 beats per minute, blood pressure is 148/100, respiratory rate 18. CHEST: Reveals diminished air entry at the bases. HEART: Reveals first and second heart sounds. No gallop. ABDOMEN: Soft. MUSCULOSKELETAL: Exam of extremities did not reveal any edema. Peripheral pulses are felt. ASSESSMENT: 1. Pancreatitis. 2. Severe hypokalemia. 3. EtOH abuse with intoxication. 4. . 5. Elevated troponin. PLAN: The patient's clinical presentation is all related to his alcohol abuse. I will obtain a 2D echo. Continue current medications. I will add beta blockers for blood pressure control. MMODL / IJN: [id number] /
[2022-10-29 16:24] LABS: Magnesium 1.8 mg/dL (1.6-2.3)
--- NOTE | 2022-10-29 17:14 | P.HPIM ---
History of Present Illness H&P Date: 10/29/22 Patient is a 39-year-old male with PMH of hypertension, diverticulitis with perforation, GERD, alcohol abuse that presents the ED for not feeling well and abdominal pain. Patient is a poor historian and is unable to describe his abdominal pain effectively. He reports pain that has been ongoing for the past week. He also reports decreased appetite, barely has had anything to eat over the past 5 days. He also reports a vague chest pain but is unable to describe his pain effectively. His last drink was yesterday. He denies any history of alcohol-induced seizures. The above symptoms prompted him to come to the ED. He currently denies any headache, lower extremity edema, fever or chills, cough, chest pain, shortness of breath, palpitations, changes in urination or bowel habits. He denies any dizziness, numbness/weakness/tingling of the extremities. In the ED, he was noted to be tachycardic with heart rate in the 100s. Vital signs were otherwise stable. CBC showed RBC count of 3.98 and platelet count 95. Coagulation panel showed INR of 1.5. CMP showed sodium 134, potassium 2, chloride of 89, bicarb of 31, BUN of 5, glucose of 118, calcium of 76, magnesium of 1.3, total bilirubin of 4.7, AST of 493, ALT of 112, alkaline phosphatase of 257, albumin of 3.2. Lipase elevated at 713. Troponin 0.073, 0.052, 0.056. EKG showed sinus tachycardia with T-wave inversions, ventricular rate of 107. Urinalysis negative. Serum alcohol 219. Chest x-ray showed right hemidiaphragm elevation. CT AP showed micronodules in the liver, wall thickening of the sigmoid colon bilateral nonobstructing renal calculi, peripancreatic fat stranding. Patient is admitted for further management. Pertinent positives and negatives as discussed in HPI, a complete review of systems was performed and all other systems are negative. General: non toxic, no distress, appears at stated age Derm: warm, dry Head: atraumatic, normocephalic, symmetric Eyes: EOMI, no lid lag, anicteric sclera Mouth: no lip lesion, mucus membranes moist Cardiovascular: Tachycardic, no murmur Lungs: CTA bilateral, no rhonchi, no rales , no accessory muscle use Abdominal: soft, nontender to palpation, no guarding, no appreciable organomegaly Ext: no gross muscle atrophy, no edema, no contractures Neuro: no focal neuro deficits Psych: Alert, oriented, appropriate affect Acute pancreatitis Troponin elevation Severe hypokalemia Alcohol intoxication with impending withdrawal Obstructive transaminitis Supratherapeutic INR Hypomagnesemia Thrombocytopenia Based on my assessment of this patient, this patient meets a high complexity level of care. Patient has an acute diagnosis of acute pancreatitis with troponin elevation and severe hypokalemia that poses a threat to life or bodily function. CT AP shows wall thickening of the sigmoid colon along with peripancreatic fat stranding. Patient will be placed nothing by mouth and given Dilaudid 0.5 mg IV every 3 hours as needed for pain. Start normal saline at 130 mL per hour. Troponins are elevated but remained flat. Cardiology recommends possible stress test after medically stable. Continue telemetry monitoring. Potassium of 2 replaced by mouth and intravenously with potassium chloride. Repeat BMP tomorrow morning. Magnesium of 1.3 replaced intravenously with magnesium sulfate. Repeat magnesium level tomorrow morning. Obstructive transaminitis, thrombocytopenia likely related to chronic alcohol abuse. Repeat CMP tomorrow morning. Continue CIWA protocol and give Ativan as needed for alcohol withdrawal. I have reviewed the following databases computer consultant notes: None. I have reviewed the results of the following tests: CBC showed RBC count of 3.98 and platelet count 95. Coagulation panel showed INR of 1.5. CMP showed sodium 134, potassium 2, chloride of 89, bicarb of 31, BUN of 5, glucose of 118, calcium of 76, magnesium of 1.3, total bilirubin of 4.7, AST of 493, ALT of 112, alkaline phosphatase of 257, albumin of 3.2. Lipase elevated at 713. Troponin 0.073, 0.052, 0.056. Urinalysis negative. Serum alcohol 219. CT AP showed micronodules in the liver, wall thickening of the sigmoid colon bilateral nonobstructing renal calculi, peripancreatic fat stranding. I have ordered the following tests: Echocardiogram ordered. Repeat CMP ordered for tomorrow morning. I have discussed the care of this patient with the following independent historian: None. I have independently interpreted the following test below: Chest x-ray showed right hemidiaphragm elevation. EKG showed sinus tachycardia with T-wave inversions. I have discussed the management of this patient with the following physician: The case is discussed with the ED physician decision made to admit the patient for elevated troponin and acute pancreatitis with severe electrolyte abnormalities. This patient has a high risk of morbidity due to the following reasons: Patient requires IV Dilaudid for pain control. 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 w/ skin flap, 10-05-15 diagnostic laproscopic and drainage of abcess d/t perforated diverticula Past Anesthesia/Blood Transfusion Reactions: No Reported Reaction Additional Past Anesthesia/Blood Transfusion Reaction / Comment(s): has never recieved blood Past Psychological History: Anxiety Smoking Status: Current every day smoker Past Alcohol Use History: Occasional Past Drug Use History: None Reported - Past Family History Mother Family Medical History: No Reported History Additional Family Medical History / Comment(s): pt was raised by his grandmother does'nt know anything about his mom or dad Medications and Allergies Home Medications Medication Instructions Recorded Confirmed Type No Known Home Medications 12/20/17 10/29/22 History Allergies Allergy/AdvReac Type Severity Reaction Status Date / Time levofloxacin [From Levaquin] Allergy Rash/Hives Verified 10/29/22 08:17 Physical Exam Vitals: Vital Signs Temp Pulse Resp BP Pulse Ox 10/29/22 14:45 95 18 158/110 98 10/29/22 13:46 97 10/29/22 13:45 89 18 138/79 90 L 10/29/22 11:41 89 18 148/100 96 10/29/22 10:00 92 18 160/104 96 10/29/22 09:37 95 18 150/96 98 10/29/22 07:54 98 18 157/108 93 L 10/29/22 05:12 97.9 F 107 H 18 150/87 98 Intake and Output 10/29/22 10/29/22 10/29/22 06:59 14:59 22:59 Other: Weight 79.379 kg Results CBC & Chem 7: 10/29/22 05:38 10/29/22 13:30 Labs: Abnormal Lab Results - Last 24 Hours (Table) 10/29/22 10/29/22 10/29/22 Range/Units 05:38 05:38 05:38 RBC 3.98 L (4.30-5.90) m/uL Plt Count 95 L (150-450) k/uL PT (9.0-12.0) sec INR (<1.2) APTT (22.0-30.0) sec Sodium 134 L (137-145) mmol/L Potassium 2.0 L* (3.5-5.1) mmol/L Chloride 89 L (98-107) mmol/L Carbon Dioxide 31 H (22-30) mmol/L BUN 5 L (9-20) mg/dL Glucose 118 H (74-99) mg/dL Calcium 7.6 L (8.4-10.2) mg/dL Magnesium (1.6-2.3) mg/dL Total Bilirubin 4.7 H (0.2-1.3) mg/dL Conjugated Bilirubin (0.0-0.3) mg/dL Unconjugated Bilirubin (0.0-1.1) mg/dL Delta Bilirubin (0.0-0.2) mg/dL AST 493 H (17-59) U/L ALT 112 H (4-49) U/L Alkaline Phosphatase 257 H (38-126) U/L Troponin I 0.073 H* (0.000-0.034) ng/mL Total Protein 8.4 H (6.3-8.2) g/dL Albumin 3.2 L (3.5-5.0) g/dL Lipase 713 H (23-300) U/L Serum Alcohol 219 H* mg/dL 10/29/22 10/29/22 10/29/22 Range/Units 05:38 07:30 07:41 RBC (4.30-5.90) m/uL Plt Count (150-450) k/uL PT 15.5 H (9.0-12.0) sec INR 1.5 H (<1.2) APTT 31.0 H (22.0-30.0) sec Sodium (137-145) mmol/L Potassium (3.5-5.1) mmol/L Chloride (98-107) mmol/L Carbon Dioxide (22-30) mmol/L BUN (9-20) mg/dL Glucose (74-99) mg/dL Calcium (8.4-10.2) mg/dL Magnesium 1.3 L (1.6-2.3) mg/dL Total Bilirubin 4.5 H (0.2-1.3) mg/dL Conjugated Bilirubin 0.6 H (0.0-0.3) mg/dL Unconjugated Bilirubin 2.1 H (0.0-1.1) mg/dL Delta Bilirubin 1.8 H (0.0-0.2) mg/dL AST (17-59) U/L ALT (4-49) U/L Alkaline Phosphatase (38-126) U/L Troponin I (0.000-0.034) ng/mL Total Protein (6.3-8.2) g/dL Albumin (3.5-5.0) g/dL Lipase (23-300) U/L Serum Alcohol mg/dL 10/29/22 10/29/22 10/29/22 Range/Units 10:15 13:30 13:30 RBC (4.30-5.90) m/uL Plt Count (150-450) k/uL PT (9.0-12.0) sec INR (<1.2) APTT (22.0-30.0) sec Sodium (137-145) mmol/L Potassium 3.0 L (3.5-5.1) mmol/L Chloride (98-107) mmol/L Carbon Dioxide (22-30) mmol/L BUN (9-20) mg/dL Glucose (74-99) mg/dL Calcium (8.4-10.2) mg/dL Magnesium (1.6-2.3) mg/dL Total Bilirubin (0.2-1.3) mg/dL Conjugated Bilirubin (0.0-0.3) mg/dL Unconjugated Bilirubin (0.0-1.1) mg/dL Delta Bilirubin (0.0-0.2) mg/dL AST (17-59) U/L ALT (4-49) U/L Alkaline Phosphatase (38-126) U/L Troponin I 0.052 H* 0.056 H* (0.000-0.034) ng/mL Total Protein (6.3-8.2) g/dL Albumin (3.5-5.0) g/dL Lipase (23-300) U/L Serum Alcohol mg/dL
[2022-10-29] MEDS: HYDROmorphone 0.5 MG/0.5 ML SYRINGE IVP PRN ×2 (18:49→22:57)
[2022-10-29] MEDS: SODIUM CHLORIDE 0.9% 1,000 ML IV SCH ×2 (19:57→23:49)
--- NOTE | 2022-10-30 01:26 | CA ---
Transthoracic Echo Report Name: Martin Padilla Age: 47 Gender: M : 1975 Exam Date: 10/29/2022 13:02 Exam Location: [facility] Ht (in): 66 Wt (lb): 175 Ordering Physician: Arnaldo Hong MD ([id number]) Attending/Referring Phys: Hal PIERCE Manager Inside Jennifer Gregory RDCS Procedure CPT: Indications: elevated trop Cardiac Hx: Technical Quality: Good Contrast 1: Total Dose (mL): Contrast 2: Total Dose (mL): MEASUREMENTS (Male / Female) Normal Values 2D ECHO LV Diastolic Diameter PLAX 4.7 cm 4.2 - 5.9 / 3.9 - 5.3 cm LV Systolic Diameter PLAX 3.1 cm IVS Diastolic Thickness 1.2 cm 0.6 - 1.0 / 0.6 - 0.9 cm LVPW Diastolic Thickness 1.1 cm 0.6 - 1.0 / 0.6 - 0.9 cm LV Relative Wall Thickness 0.5 RV Internal Dim ED PLAX 3.5 cm LA Systolic Diameter LX 3.1 cm 3.0 - 4.0 / 2.7 - 3.8 cm LA Volume 34.3 cm??? 18 - 58 / 22 - 52 cm??? M-MODE Aortic Root Diameter MM 3.9 cm MV E Point Septal Separation 0.5 cm AV Cusp Separation MM 2.0 cm DOPPLER AV Peak Velocity 188.0 cm/s AV Peak Gradient 14.1 mmHg MV Area PHT 3.7 cm??? Mitral E Point Velocity 86.3 cm/s Mitral A Point Velocity 82.0 cm/s Mitral E to A Ratio 1.1 MV Deceleration Time 205.3 ms MV E' Velocity 6.7 cm/s Mitral E to MV E' Ratio 12.8 TR Peak Velocity 212.0 cm/s TR Peak Gradient 18.0 mmHg Right Ventricular Systolic Press 23.0 mmHg FINDINGS Left Ventricle Left ventricular ejection fraction is estimated at 55-60 %. Left ventricular cavity size normal. Mildly increased septal wall thickness. Normal left ventricular wall motion. Right Ventricle Mild right ventricular dilatation. Right ventricular systolic pressure within normal limits. Right Atrium Normal right atrial size. Left Atrium Normal left atrial size. Mitral Valve Structurally normal mitral valve. No mitral stenosis, regurgitation or prolapse. Aortic Valve Trileaflet aortic valve. No aortic valve stenosis or regurgitation. Tricuspid Valve Structurally normal tricuspid valve. Trace tricuspid regurgitation. Pulmonic Valve Structurally normal pulmonic valve. Mild pulmonic regurgitation. Pericardium Normal pericardium. No pericardial effusion. Aorta Mild aortic dilatation at the level of the sinuses of valsalva 39 mm CONCLUSIONS Left ventricular ejection fraction 55-60% Mild increased left ventricular wall thickness Trace tricuspid regurgitation No pericardial effusion Previewed by: Dr. Shaquille Adams DO (Electronically Signed) Final Date: 30 Oct 2022 01:25
[2022-10-30] MEDS: HYDROmorphone 0.5 MG/0.5 ML SYRINGE IVP PRN (02:54)
[2022-10-30 08:55] LABS: HCT 43.3 % (39.0-53.0); HGB 13.8 gm/dL (13.0-17.5); MCH 34.3 pg (25.0-35.0); MCHC 31.9 g/dL (31.0-37.0); Macrocytosis Moderate; Mean Platelet Volume 9.3; RBC 4.03 m/uL (4.30-5.90); WBC 5.2 k/uL (3.8-10.6)
[2022-10-30] MEDS: SODIUM CHLORIDE 0.9% 1,000 ML IV SCH (08:57)
[2022-10-30 09:00] LABS: MCV 107.5 fL (80.0-100.0)
[2022-10-30] MEDS ORDERED: THIAMINE 100 MG TAB PO SCH (09:00)
[2022-10-30] MEDS ORDERED: NICOTINE 21MG/24HR PATCH TRANSDERM SCH (09:00)
[2022-10-30] MEDS ORDERED: METOPROLOL SUCCINATE (ER) 25 MG TAB.ER.24H PO SCH (09:00)
[2022-10-30 09:09] LABS: ALT 101 U/L (4-49); AST 494 U/L (17-59); African American GFR (CKD) >90 (>60 ml/min/1.73 sqM); Albumin 2.9 g/dL (3.5-5.0); Alkaline Phosphatase 245 U/L (38-126); Anion Gap 10 mmol/L; Blood Urea Nitrogen 7 mg/dL (9-20); Calcium 6.8 mg/dL (8.4-10.2); Carbon Dioxide 29 mmol/L (22-30); Chloride 98 mmol/L (98-107); Glucose 116 mg/dL (74-99); Non-African American GFR(CKD) >90 (>60 ml/min/1.73 sqM); Sodium 137 mmol/L (137-145); Total Protein 7.9 g/dL (6.3-8.2)
[2022-10-30 09:17] LABS: Potassium 2.7 mmol/L (3.5-5.1)
[2022-10-30 09:34] LABS: Platelet Count 81 k/uL (150-450)
[2022-10-30] MEDS ORDERED: POTASSIUM CHLORIDE ER 20 MEQ TAB.ER PO STA (11:34)
[2022-10-30] MEDS ORDERED: POTASSIUM CHLORIDE 10 MEQ in WATER FOR INJECTION 1 100ML.BAG IVPB SCH (12:00)
[2022-10-30 12:03] VITALS: BP 184/104; PULSE 92; RESP 16; TEMP 97.8
--- NOTE | 2022-10-30 12:34 | P.PN ---
Subjective Progress Note Date: 10/30/22 Patient is a 39-year-old male with PMH of hypertension, diverticulitis with perforation, GERD, alcohol abuse that presents the ED for not feeling well and abdominal pain. Patient is a poor historian and is unable to describe his abdominal pain effectively. He reports pain that has been ongoing for the past week. He also reports decreased appetite, barely has had anything to eat over the past 5 days. He also reports a vague chest pain but is unable to describe his pain effectively. His last drink was yesterday. He denies any history of alcohol-induced seizures. The above symptoms prompted him to come to the ED. He currently denies any headache, lower extremity edema, fever or chills, cough, chest pain, shortness of breath, palpitations, changes in urination or bowel habits. He denies any dizziness, numbness/weakness/tingling of the extremities. In the ED, he was noted to be tachycardic with heart rate in the 100s. Vital signs were otherwise stable. CBC showed RBC count of 3.98 and platelet count 95. Coagulation panel showed INR of 1.5. CMP showed sodium 134, potassium 2, chloride of 89, bicarb of 31, BUN of 5, glucose of 118, calcium of 76, magnesium of 1.3, total bilirubin of 4.7, AST of 493, ALT of 112, alkaline phosphatase of 257, albumin of 3.2. Lipase elevated at 713. Troponin 0.073, 0.052, 0.056. EKG showed sinus tachycardia with T-wave inversions, ventricular rate of 107. Urinalysis negative. Serum alcohol 219. Chest x-ray showed right hemidiaphragm elevation. CT AP showed micronodules in the liver, wall thickening of the sigmoid colon bilateral nonobstructing renal calculi, peripancreatic fat stranding. Patient is admitted for further management. 10/30 Patient was seen and examined. He has received 2 mg of IV Ativan along with 1.5 mg IV Dilaudid overnight. He reports feeling well. He has no complaints. Adamant about wanting to leave AGAINST MEDICAL ADVICE. General: non toxic, no distress, appears at stated age Derm: warm, dry Head: atraumatic, normocephalic, symmetric Eyes: EOMI, no lid lag, anicteric sclera Cardiovascular: good distal perfusion in all 4 extremities Lungs: no accessory muscle use Ext: no gross muscle atrophy, no edema, no contractures Neuro: no focal neuro deficits Psych: Alert, oriented, appropriate affect Acute pancreatitis Troponin elevation Severe hypokalemia Alcohol intoxication with impending withdrawal Obstructive transaminitis Supratherapeutic INR Thrombocytopenia Resolved: HypoMg Based on my assessment of this patient, this patient meets a high complexity level of care. Patient has an acute diagnosis of acute pancreatitis with troponin elevation and severe hypokalemia that poses a threat to life or bodily function. CT AP shows wall thickening of the sigmoid colon along with peripancreatic fat stranding. Patient will be placed nothing by mouth and given Dilaudid 0.5 mg IV every 3 hours as needed for pain. He has received 1.5 mg IV Dilaudid overnight. Decrease normal saline to 75 mL per hour. Troponins are elevated but remained flat. Cardiology recommends possible stress test after medically stable. Continue telemetry monitoring. Potassium of 2.7 will be replaced with KCl 40 meq PO and 40 meq IV. Obstructive transaminitis, thrombocytopenia likely related to chronic alcohol abuse. His Maddrey score is 23.1. Continue CIWA protocol and give Ativan as needed for alcohol withdrawal. He has received 2 mg of IV Ativan I have reviewed the following skin care consultant notes: None. I have reviewed the results of the following tests: CBC shows MCV of 107.5 and platelet count of 81. CMP shows potassium of 2.7, BUN of 7, glucose 116, calcium 6.8, total bilirubin of 7, AST 494, ALT 101, alkaline phosphatase 245 and albumin of 2.9. Echocardiogram shows EF of 55-60% with trace TR, mild LV wall thickness I have ordered the following tests: LDH ordered. Repeat CMP tomorrow morning. Liver ultrasound with Doppler ordered. I have discussed the care of this patient with the following independent historian: None. I have independently interpreted the following test below: None. I have discussed the management of this patient with the following physician: None. This patient has a high risk of morbidity due to the following reasons: Patient requires IV Dilaudid for pain control. Patient required IV Ativan for alcohol withdrawal. Objective - Vital Signs Vital signs: Vital Signs Temp 98.9 F 10/30/22 03:55 Pulse 86 10/30/22 03:55 Resp 18 10/30/22 03:55 BP 146/83 10/30/22 03:55 Pulse Ox 98 10/30/22 03:55 FiO2 Intake & Output 10/29/22 10/30/22 10/30/22 18:59 06:59 18:59 Weight 79.379 kg Other: Voiding Method Toilet # Voids 3 - Labs CBC & Chem 7: 10/30/22 07:43 10/30/22 07:43 Labs: Abnormal Lab Results - Last 24 Hours (Table) 10/29/22 10/29/22 10/29/22 Range/Units 10:15 13:30 13:30 Potassium 3.0 L (3.5-5.1) mmol/L Troponin I 0.052 H* 0.056 H* (0.000-0.034) ng/mL
--- NOTE | 2022-10-30 12:36 | P.DS ---
Providers Date of admission: 10/29/22 08:32 Expected date of discharge: 10/30/22 Attending physician: Favian Purcell MD Consults: 10/29/22 08:26 Consult Physician Routine Consulting Provider: [facility] Consult Reason/Comments: elevated troponin, ST depression, hypokalemia Do you want consulting provider notified?: Yes Primary care physician: Stated None Hospital Course: Patient is a 39-year-old male with PMH of hypertension, diverticulitis with perforation, GERD, alcohol abuse that presents the ED for not feeling well and abdominal pain. Patient is a poor historian and is unable to describe his abdominal pain effectively. He reports pain that has been ongoing for the past week. He also reports decreased appetite, barely has had anything to eat over t he past 5 days. He also reports a vague chest pain but is unable to describe his pain effectively. His last drink was yesterday. He denies any history of alcohol-induced seizures. The above symptoms prompted him to come to the ED. He currently denies any headache, lower extremity edema, fever or chills, cough, chest pain, shortness of breath, palpitations, changes in urination or bowel habits. He denies any dizziness, numbness/weakness/tingling of the extremities. In the ED, he was noted to be tachycardic with heart rate in the 100s. Vital signs were otherwise stable. CBC showed RBC count of 3.98 and platelet count 95. Coagulation panel showed INR of 1.5. CMP showed sodium 134, potassium 2, chloride of 89, bicarb of 31, BUN of 5, glucose of 118, calcium of 76, magnesium of 1.3, total bilirubin of 4.7, AST of 493, ALT of 112, alkaline phosphatase of 257, albumin of 3.2. Lipase elevated at 713. Troponin 0.073, 0.052, 0.056. EKG showed sinus tachycardia with T-wave inversions, ventricular rate of 107. Urinalysis negative. Serum alcohol 219. Chest x-ray showed right hemidiaphragm elevation. CT AP showed micronodules in the liver, wall thickening of the sigmoid colon bilateral nonobstructing renal calculi, peripancreatic fat stranding. Patient is admitted for further management. His potassium and magnesium was replaced. His troponins remained flat, cardiology was consulted and recommended stress test when patient was medically stable. He was given Dilaudid as needed for abdominal pain along with Ativan as needed for alcohol withdrawal. Patient left AGAINST MEDICAL ADVICE on 10/30. See progress note for physical exam. Pertinent studies include chest x-ray, CT AP, echocardiogram. Discharge diagnosis: Acute pancreatitis Troponin elevation Severe hypokalemia Alcohol intoxication with impending withdrawal Obstructive transaminitis Supratherapeutic INR Thrombocytopenia Resolved: HypoMg Patient Condition at Discharge: Critical Plan - Discharge Summary New Discharge Prescriptions: No Action No Known Home Medications Discharge Medication List No Known Home Medications 12/20/17 [History] Follow up Appointment(s)/Referral(s): None,Stated [Primary Care Provider] - 1-2 days
[2022-10-30 13:41] LABS: Chol/HDL Ratio 8.32 Ratio; LDL Cholesterol,Calculated 75.1 mg/dL (0.0-131.0)
--- NOTE | 2022-10-30 13:44 | P.PN ---
Subjective Progress Note Date: 10/30/22 The patient is a 47-year-old male who is currently admitted to the hospital with acute alcohol intoxication and pancreatitis. Cardiology was consulted for mildly elevated troponins that are of a flat trend. Patient is also had severe hypokalemia, which is been supplemented per protocol. Patient was interviewed and examined resting comfortably in bed. He denies any cardiac symptoms. GENERAL: Well-appearing, well-nourished and in no acute distress. NECK: Supple without JVD or thyromegaly. LUNGS: Breath sounds clear to auscultation bilaterally. Respiration equal and unlabored. No wheezes, rales or rhonchi. HEART: Regular rate and rhythm without murmurs, rubs or gallops. S1 and S2 heard. EXTREMITIES: Normal range of motion, no edema. No clubbing or cyanosis. Peripheral pulses intact and strong. VITALS: Systolic blood pressure averaging in the 140s to 160s TELEMETRY: Sinus rhythm overnight IMPRESSION: Acute pancreatitis Severe hypokalemia EtOH abuse Elevated troponins, flat trend Hypertension PLAN: Increase metoprolol to 50 mg twice daily No further recommendations from the cardiac standpoint I am dictating on behalf of Dr Joni Mariee's history/physical and assessment/plan. Objective - Vital Signs Vital signs: Vital Signs Temp 97.8 F 10/30/22 11:25 Pulse 92 10/30/22 11:25 Resp 16 10/30/22 11:25 BP 184/104 10/30/22 11:25 Pulse Ox 96 10/30/22 11:25 FiO2 Intake & Output 10/29/22 10/30/22 10/30/22 18:59 06:59 18:59 Weight 79.379 kg Other: Voiding Method Toilet # Voids 3 2 - Labs CBC & Chem 7: 10/30/22 07:43 10/30/22 07:43 Labs: Abnormal Lab Results - Last 24 Hours (Table) 10/29/22 10/29/22 10/30/22 Range/Units 13:30 13:30 07:43 RBC (4.30-5.90) m/uL MCV (80.0-100.0) fL Plt Count (150-450) k/uL Potassium 3.0 L (3.5-5.1) mmol/L BUN (9-20) mg/dL Glucose (74-99) mg/dL Calcium (8.4-10.2) mg/dL Total Bilirubin (0.2-1.3) mg/dL AST (17-59) U/L ALT (4-49) U/L Alkaline Phosphatase (38-126) U/L Lactate Dehydrogenase (120-246) U/L Troponin I 0.056 H* (0.000-0.034) ng/mL Albumin (3.5-5.0) g/dL HDL Cholesterol 13.70 L (40.00-60.00) mg/dL 10/30/22 10/30/22 10/30/22 Range/Units 07:43 07:43 07:43 RBC 4.03 L (4.30-5.90) m/uL MCV 107.5 H D (80.0-100.0) fL Plt Count 81 L (150-450) k/uL Potassium 2.7 L* (3.5-5.1) mmol/L BUN 7 L (9-20) mg/dL Glucose 116 H (74-99) mg/dL Calcium 6.8 L (8.4-10.2) mg/dL Total Bilirubin 7.0 H (0.2-1.3) mg/dL AST 494 H (17-59) U/L ALT 101 H (4-49) U/L Alkaline Phosphatase 245 H (38-126) U/L Lactate Dehydrogenase 480 H (120-246) U/L Troponin I (0.000-0.034) ng/mL Albumin 2.9 L (3.5-5.0) g/dL HDL Cholesterol (40.00-60.00) mg/dL
[2022-10-31] MEDS ORDERED: METOPROLOL SUCCINATE (ER) 50 MG TAB.ER.24H PO SCH (09:00)
--- NOTE | 2022-11-03 15:14 | CDI ---
Documentation Clarification Form Date: 11/03/2022 From: Grace Patterson Admit Date: 10/29/2022 8:32:00 AM Patient Name: Martin Padilla Visit Number: [id number] Discharge Date: 10/30/2022 12:19:00 PM ATTENTION: The Clinical Documentation Specialists (CDI) and [facility] Coding Staff appreciate your assistance in clarifying documentation. Please respond to the clarification below the line at the bottom and electronically sign. The CDI & [facility] Coding staff will review the response and follow-up if needed. Please note: Queries are made part of the Legal Health Record. If you have any questions, please contact the author of this message via ITS. Dr. Kelly Lynn, Pancreatitis is documented 10/30 DCS & PN. Additional clarification regarding the etiology and acuity of pancreatitis is requested. History/risk factors: GERD, ETOH, Thrombocytopenia, Hypokalemia, & HTN Clinical Indicators: Elevated Lipase, Troponin, Transaminase Radiology: 10/29 CT Scan: Trace peripancreatic fat stranding and fluid which may reactive to # versusacute interstitialedematouspancreatitis Amylase/Lipase: 10/29 97/713 Treatment: 10/30 [facility] protocoland give Ativan as needed foralcohol withdrawal. He has received 2 mg of IV Ativan Medication Please clarify the acuity and etiology of the pancreatitis, if known: Acuity [ x ] Acute pancreatitis [ ] Acute on Chronic pancreatitis [ ] Chronic pancreatitis [ ] Other, please specify ____ [ ] Unable to determine Etiology [ ] Alcohol induced pancreatitis [ ] Biliary pancreatitis [ ] Cytomegaloviral pancreatitis [ ] Drug induced pancreatitis [ ] Gallstone pancreatitis [ ] Idiopathic pancreatitis [ ] Other, please specify [ ] Unable to determine MTDD
== END 2022-10-30 12:19 | disposition left against medical advice (07) | DRG 282 ==
LOC: EC 05:06 → 3SCARD 08:32
PROVIDERS: ADMIT Student in an Organized Health Care Education/Training Program; ATTEND Student in an Organized Health Care Education/Training Program
DX: K85.90 Acute pancreatitis without necrosis or infection, unspecified (principal); D68.9 Coagulation defect, unspecified; D69.59 Other secondary thrombocytopenia; F10.229 Alcohol dependence with intoxication, unspecified; Z28.310 Unvaccinated for COVID-19; E87.6 Hypokalemia; I10 Essential (primary) hypertension; K21.9 Gastro-esophageal reflux disease without esophagitis; R77.8 Other specified abnormalities of plasma proteins; F10.239 Alcohol dependence with withdrawal, unspecified; F17.200 Nicotine dependence, unspecified, uncomplicated; Y90.7 Blood alcohol level of 200-239 mg/100 ml; E83.42 Hypomagnesemia; M19.90 Unspecified osteoarthritis, unspecified site; N20.0 Calculus of kidney; R74.01 Elevation of levels of liver transaminase levels; Z53.29 Procedure and treatment not carried out because of patient's decision for other reasons; Z88.1 Allergy status to other antibiotic agents; Z87.19 Personal history of other diseases of the digestive system; Z85.828 Personal history of other malignant neoplasm of skin
CPT/HCPCS: 36415; 71045; 74177; 80053; 80061; 80320; 81003; 82150; 82248; 83615; 83690; 83735; 84132; 84484; 85025; 85027; 85610; 85730; 93005; 93306; 96361; 96365; 96366; 96368; 96372; 96375; 99285